=== PATIENT | male | born 1960 | race Caucasian/White ===

== ENCOUNTER 2020-10-03 11:22 | Outpatient (CLI) | payer OTHER, SELFPAY ==
--- NOTE | ~2020-10-03 | XR_ITS ---
XR thoracic spine 3V 10/03/2020 11:44 Indication: Back pain Procedure: 3 views of the thoracic spine Comparison: No prior studies for comparison. Findings: Vertebral body heights are maintained. There is mild disc narrowing at multiple levels. The re is diffuse idiopathic skeletal hyperostosis (DISH) of the thoracic spine. No fracture or traumatic malalignment. No paraspinal soft tissue abnormality. Pedicles intact. Surrounding osseous structures within normal limits. Impression: 1: Mild thoracic spondylosis. Reviewed, dictated and finalized at location A. Impression: 1: Mild thoracic spondylosis.
--- NOTE | ~2020-10-03 | XR_ITS ---
XR lumbar spine 6V w bending 10/03/2020 11:44 Indication: Chronic back pain Procedure: 7 views lumbar spine including flexion/extension Comparison: No prior studies for comparison. Findings: There is mild disc narrowing at L4-5 and L5-S1. There are facet degenerative changes at L5- S1. No acute fracture or traumatic malalignment. No significant alteration of alignment with flexion and extension. No spondylolisthesis. Impression: 1: Mild lumbar spondylosis. Reviewed, dictated and finalized at location A. Impression: 1: Mild lumbar spondylosis.
== END 2020-10-03 11:23 | disposition home or self-care (01) ==
LOC: ANHIMG 11:24
PROVIDERS: PCP Family Medicine; Visit Provider Family Medicine
DX: M47.894 Other spondylosis, thoracic region (principal); M47.896 Other spondylosis, lumbar region
CPT/HCPCS: 72072; 72114